=== PATIENT | male | born 1955 | race Caucasian/White ===

== ENCOUNTER 2022-02-12 23:43 | Emergency (ER) | payer OTHER, MEDICARE ==
[~2022-02-12 23:43] MED LIST: HYDR473S49 PO
[2022-02-13] MEDS ORDERED: HYDROcodone/acetaminophen 5mg/325mg tablet PO ONE (01:30)
[2022-02-13] MEDS ORDERED: ibuprofen tablet 400 MG TABLET PO ONE (01:30)
[2022-02-13] MEDS ORDERED: HYDR-3972 PO (01:34)
[2022-02-13 02:13] VITALS: BP 170/107
== END 2022-02-13 02:24 | disposition home or self-care (01) ==
LOC: ER 23:43
DX: S42.022A Displaced fracture of shaft of left clavicle, initial encounter for closed fracture (principal); S40.212A Abrasion of left shoulder, initial encounter; M25.512 Pain in left shoulder; F12.90 Cannabis use, unspecified, uncomplicated; Z85.9 Personal history of malignant neoplasm, unspecified; Z98.890 Other specified postprocedural states; Z79.899 Other long term (current) drug therapy; W19.XXXA Unspecified fall, initial encounter; Y93.89 Activity, other specified; Y92.89 Other specified places as the place of occurrence of the external cause; Y99.8 Other external cause status
CPT/HCPCS: 73030; 99284; A4565

== ENCOUNTER 2023-01-25 16:51 | Emergency (ER) | payer OTHER, MEDICARE ==
[~2023-01-25] VITALS: Ht 182.9 cm; Wt 87.0 kg
[2023-01-25 16:54] VITALS: BP 173/101
[2023-01-25] MEDS ORDERED: proparacaine 0.5% ophthalmic drops 15ml EACHEYE ONE (18:10)
[2023-01-25] MEDS ORDERED: tobramycin/dexamethasone ophthalmic suspension EACHEYE ONE (18:30)
== END 2023-01-25 19:13 | disposition home or self-care (01) ==
LOC: ER 16:52
DX: S05.01XA Injury of conjunctiva and corneal abrasion without foreign body, right eye, initial encounter (principal); F17.200 Nicotine dependence, unspecified, uncomplicated; F12.90 Cannabis use, unspecified, uncomplicated; X58.XXXA Exposure to other specified factors, initial encounter; Y93.89 Activity, other specified; Y92.89 Other specified places as the place of occurrence of the external cause; Y99.8 Other external cause status
CPT/HCPCS: 99283

== ENCOUNTER 2024-11-02 13:07 | Emergency (ER) | payer OTHER, MEDICARE ==
[~2024-11-02] VITALS: Ht 180.3 cm; Wt 63.9 kg
[2024-11-02 13:08] VITALS: BP 105/73; PULSE 74; RESP 18; TEMP 98; O2SAT 100
== END 2024-11-02 15:45 | disposition home or self-care (01) ==
LOC: ER 13:08
DX: K94.23 Gastrostomy malfunction (principal); F12.90 Cannabis use, unspecified, uncomplicated; Z85.21 Personal history of malignant neoplasm of larynx
CPT/HCPCS: 99281